=== PATIENT | female | born 2000 | race Caucasian/White ===

== ENCOUNTER 2024-05-28 21:20 | Emergency (ER) | payer BC ==
[~2024-05-28] VITALS: Ht 162.6 cm; Wt 60.8 kg
[2024-05-28] MEDS: NICOTINE 21 MG/24HR PATCH TD SCH (00:30)
[2024-05-28 21:56] LABS: BASOPHILS % (AUTO) 0.5 % (0.0-2.0); EOSINOPHILS # (AUTO) 0.1 K/uL (0.0-0.7); HEMATOCRIT 42.1 % (31.2-41.9); HEMOGLOBIN 14.2 g/dL (10.9-14.3); LYMPHOCYTES # (AUTO) 2.7 K/uL (0.8-4.8); LYMPHOCYTES % (AUTO) 30.7 % (20.5-51.5); MEAN CORPUSCULAR HGB CONC 34 g/dL (32.3-35.6); MONOCYTES # (AUTO) 0.5 K/uL (0.1-1.30); MONOCYTES % (AUTO) 5.3 % (0.0-11.0); NEUTROPHILS # (AUTO) 5.5 K/uL (1.8-8.9); NEUTROPHILS % (AUTO) 62.5 % (38.5-71.5); PLATELET COUNT (AUTO) 334 K/uL (179-408); RED BLOOD CELL COUNT(AUTO) 4.73 MIL/uL (3.63-4.92); RED CELL DISTRIBUTION WIDTH 12.5 % (12.3-17.7); WHITE BLOOD COUNT (AUTO) 8.9 K/uL (3.8-11.8)
[2024-05-28 21:59] LABS: DIFFERENTIAL COMMENT 1
[2024-05-28 22:07] LABS: CALCIUM 8.9 mg/dL (8.5-10.1); CARBON DIOXIDE 23 mmol/L (21-32); CHLORIDE 102 mmol/L (98-107); CREATININE 0.7 mg/dL (0.6-1.3); GLUCOSE 105 mg/dL (74-106); POTASSIUM 3.7 mmol/L (3.5-5.1); SODIUM SERUM 141 mmol/L (136-145); UREA NITROGEN, BLOOD 10 mg/dL (7-18)
[2024-05-28 22:08] LABS: AMMONIA 14 umol/L (11-32)
[2024-05-28 22:15] LABS: CREATINE KINASE, TOTAL 197 U/L (26-192)
[2024-05-28 22:16] LABS: ALANINE AMINOTRANSFERASE 17 U/L (14-59); ALKALINE PHOSPHATASE 58 U/L (50-136); ASPARTATE AMINOTRANSFERASE 13 U/L (15-37); BILIRUBIN,DIRECT 0.2 mg/dL (0.0-0.2); BILIRUBIN,TOTAL 0.5 mg/dL (0.2-1.0); TOTAL PROTEIN, SERUM 8.2 g/dL (6.4-8.2)
[2024-05-28 22:20] LABS: ACETAMINOPHEN < 2.0 ug/mL (10-30); ETHANOL 321 MG/DL (0-10)
[2024-05-28 22:23] LABS: PREGNANCY TEST SERUM QUAN < 1 miul/L (0-6)
[2024-05-28 23:13] LABS: *BILIRUBIN,URIN NEGATIVE (NEGATIVE); *BLOOD, URINE NEGATIVE (NEGATIVE); *COLOR,URINE YELLOW (YELLOW); *KETONES,URINE TRACE (NEGATIVE); *PROTEIN,URINE 1+ (NEGATIVE); *UROBILINOGEN,URINE 0.2 E.U./dl (NORMAL); LEUKOCYTE ESTERASE ,URINE 3+ (NEGATIVE); NITRITE, URINE NEGATIVE (NEGATIVE); PH,URINE 7.5 (5.0-8.0); UGLUCOSE NEGATIVE (NEGATIVE)
[2024-05-28 23:14] LABS: *CLARITY,URINE SLIGHTLY CLOUDY (CLEAR)
[2024-05-28 23:20] LABS: *URINE HCG, QUAL NEGATIVE (NEGATIVE)
[2024-05-28 23:25] LABS: *AMPHETAMINE, URINE NEGATIVE (NEGATIVE); *BARBITURATE, URINE NEGATIVE (NEGATIVE); *BENZODIAZEPINE, URINE NEGATIVE (NEGATIVE); *CANNABINOID, URINE NEGATIVE (NEGATIVE); *COCCAINE, URINE NEGATIVE (NEGATIVE); *OPIATE, URINE NEGATIVE (NEGATIVE); *PHENCYCLIDINE SCREEN,URINE NEGATIVE (NEGATIVE); FENTANYL, URINE NEGATIVE (NEGATIVE)
[2024-05-28 23:39] LABS: BACTERIA,URINE FEW /HPF (NONE SEEN); RBC,URINE 0-3 /HPF (0-3); SQUAMOUS EPITHELIAL CELL,UR MODERATE /HPF (NONE SEEN); TRIPLE PHOSPHATE CRYSTAL,UR FEW /HPF (NONE SEEN); URINE AMORPHOUS PHOSPHATES FEW /HPF
[2024-05-29] MEDS ORDERED: ACETAMINOPHEN 500 MG TABLET ONE ×2 (01:38→19:37)
[2024-05-29] MEDS: ACETAMINOPHEN 500 MG TABLET PO ONE ×2 (01:47→19:43)
[2024-05-29] MEDS ORDERED: CEFD300C3 PO (11:38)
[2024-05-29] MEDS: CEFDINIR 300 MG CAPSULE PO ONE (19:20)
[2024-05-29 21:17] VITALS: BP 120/68; TEMP 97.7; O2SAT 96
== END 2024-05-29 19:40 ==
LOC: ER 21:22
DX: F10.129 Alcohol abuse with intoxication, unspecified (principal); R45.851 Suicidal ideations; R10.2 Pelvic and perineal pain; Y90.0 Blood alcohol level of less than 20 mg/100 ml
CPT/HCPCS: 36415; 84484; 84703; 85025; 85730; A4606; A4663; A9150; G0480